=== PATIENT | male | born 1930 | race Caucasian/White ===

== ENCOUNTER 2021-02-08 14:03 | Inpatient (IN) ==
[2021-02-11] MEDS ORDERED: Sennosides/Docusate Sodium TABLET PO PRN (15:45)
[2021-02-11] MEDS ORDERED: MOM Conc 10 ML UD.LIQ PO PRN (16:21)
[2021-02-11] MEDS ORDERED: Ondansetron ODT 4 MG TAB.RAPDIS SL PRN (16:21)
[2021-02-11] MEDS ORDERED: polyethylene glycoL 3350 17 GM POWD.PACK PO PRN (16:21)
[2021-02-11] MEDS ORDERED: Warfarin perPT PO PRN (18:00)
[2021-02-11] MEDS ORDERED: *HR* Warfarin 3 MG TABLET PO ONE (18:00)
[2021-02-11] MEDS: *HR* Metformin 500 MG TABLET PO SCH (18:56)
[2021-02-11] MEDS: Finasteride 5 MG TABLET PO PRN (18:57)
[2021-02-11] MEDS: Metoprolol 100 MG TABLET PO SCH (20:24)
[2021-02-11] MEDS: Acetaminophen 325 MG TABLET PO PRN (20:35)
[2021-02-11] MEDS: GLUCOS SUL PO SCH (20:44)
[2021-02-11] MEDS: [UNRECOGNIZED DRUG - OTHER] PO SCH (20:44)
[2021-02-12 06:40] LABS: INR 1.3; Prothrombin Time 15.1 Seconds (9.4-12.1)
[2021-02-12 06:42] LABS: Hematocrit 23.8 % (37.5-50.1); Hemoglobin 7.2 g/dL (12.9-16.9); Mean Corpuscular HGB Conc 30.3 g/dL (31.6-35.5); Mean Corpuscular Hemoglobin 30.3 pg (28.0-33.3); Mean Platelet Volume 10.8 fL (9.4-12.4); Platelet Count 199 K/mcL (140-400); Red Blood Count 2.38 M/mcL (4.19-5.50); Red Cell Distribution Width 21.8 % (11.5-14.5); Segmented Neutrophils % 42.8 %
[2021-02-12 06:43] LABS: Basophils % 0.5 %; Eosinophils # 0.6 K/mcL (0.0-0.6); Eosinophils % 10.3 %; Immature Granulocytes % 1.7 % (0-4); Lymphocytes # 1.8 K/mcL (0.6-4.6); Lymphocytes % 29.9 %; Monocytes # 0.9 K/mcL (0.0-1.3); Monocytes % 14.8 %; Neutrophils # 2.6 K/mcL (1.6-8.9); Nucleated Red Blood Cells 0.8 /100 WBC (0)
[2021-02-12 08:16] LABS: Alanine Aminotransferase 11 Units/L (7-52); Albumin 3.3 g/dL (3.5-5.7); Albumin/Globulin Ratio 1.1 (1.1-2.2); Alkaline Phosphatase 52 Units/L (34-104); Aspartate Amino Transferase 13 Units/L (13-39); BUN/Creatinine Ratio 22 (6-26); Bilirubin,Total 0.5 mg/dL (0.3-1.0); Blood Urea Nitrogen 28 mg/dL (8-23); Calcium 8.5 mg/dL (8.6-10.3); Carbon Dioxide 24 mEq/L (23-29); Chloride 105 mEq/L (98-107); Glucose 110 mg/dL (70-105); Osmolality,Calculated 294 (280-300); Potassium 3.9 mEq/L (3.5-5.1); Sodium 139 mEq/L (136-145); Total Protein 6.3 g/dL (6.4-8.9); eGFR For African Americans > 60 (> 60); eGFR For Non-African Americans 52 (> 60)
[2021-02-12] MEDS: Furosemide 40 MG TABLET PO SCH (08:16)
[2021-02-12] MEDS: *HR* Glimepiride 2 MG TABLET PO SCH (08:16)
[2021-02-12] MEDS: GLUCOS SUL PO SCH ×2 (08:16→20:20)
[2021-02-12] MEDS: (Fish Oil/Dha/Epa [Fish Oil 1,200 Mg Fish Oil] 1 EACH PO SCH (08:16)
[2021-02-12] MEDS: [UNRECOGNIZED DRUG - OTHER] PO SCH ×2 (08:16→20:20)
[2021-02-12] MEDS: Metoprolol 100 MG TABLET PO SCH ×2 (08:16→20:18)
[2021-02-12] MEDS: *HR* Metformin 500 MG TABLET PO SCH ×2 (08:16→17:17)
[2021-02-12] MEDS ORDERED: *HR* Warfarin 5 MG TABLET PO ONE (18:00)
[2021-02-12] MEDS: Acetaminophen 325 MG TABLET PO PRN (20:18)
[2021-02-13 05:55] LABS: Hematocrit 26.7 % (37.5-50.1); Hemoglobin 8.1 g/dL (12.9-16.9)
[2021-02-13 06:05] LABS: INR 1.3; Prothrombin Time 15.4 Seconds (9.4-12.1)
[2021-02-13] MEDS: GLUCOS SUL PO SCH (08:14)
[2021-02-13] MEDS: Furosemide 40 MG TABLET PO SCH (08:14)
[2021-02-13] MEDS: *HR* Metformin 500 MG TABLET PO SCH ×2 (08:14→16:14)
[2021-02-13] MEDS: *HR* Glimepiride 2 MG TABLET PO SCH (08:14)
[2021-02-13] MEDS: Metoprolol 100 MG TABLET PO SCH ×2 (08:14→22:11)
[2021-02-13] MEDS: [UNRECOGNIZED DRUG - OTHER] PO SCH (08:14)
[2021-02-13] MEDS: (Fish Oil/Dha/Epa [Fish Oil 1,200 Mg Fish Oil] 1 EACH PO SCH (08:14)
[2021-02-13 12:59] LABS: % Iron Saturation 30 % (20-55); Iron 74 mcg/dL (65-175); Transferrin 175 mg/dL (203-362)
[2021-02-13] MEDS ORDERED: *HR* Warfarin 5 MG TABLET PO ONE (18:00)
[2021-02-13] MEDS: Acetaminophen 325 MG TABLET PO PRN (22:11)
[2021-02-13] MEDS: Finasteride 5 MG TABLET PO PRN (22:13)
[2021-02-14 04:54] LABS: INR 1.7; Prothrombin Time 19.3 Seconds (9.4-12.1)
[2021-02-14] MEDS: Furosemide 40 MG TABLET PO SCH (08:42)
[2021-02-14] MEDS: Metoprolol 100 MG TABLET PO SCH ×2 (08:42→20:29)
[2021-02-14] MEDS: *HR* Glimepiride 2 MG TABLET PO SCH (08:42)
[2021-02-14] MEDS: *HR* Metformin 500 MG TABLET PO SCH (08:43)
[2021-02-14] MEDS ORDERED: *HR* Warfarin 4 MG TABLET PO ONE (18:00)
[2021-02-14] MEDS: Finasteride 5 MG TABLET PO SCH (20:29)
[2021-02-14] MEDS: Acetaminophen 325 MG TABLET PO PRN (20:29)
[2021-02-15 04:51] LABS: Hematocrit 24.3 % (37.5-50.1); Hemoglobin 7.6 g/dL (12.9-16.9); Mean Corpuscular HGB Conc 31.3 g/dL (31.6-35.5); Mean Corpuscular Volume 99.2 fL (83.0-100.0); Mean Platelet Volume 10.2 fL (9.4-12.4); Platelet Count 196 K/mcL (140-400); Red Blood Count 2.45 M/mcL (4.19-5.50)
[2021-02-15 04:56] LABS: INR 1.9; Prothrombin Time 21.5 Seconds (9.4-12.1)
[2021-02-15 05:03] LABS: BUN/Creatinine Ratio 22 (6-26); Blood Urea Nitrogen 27 mg/dL (8-23); Calcium 8.4 mg/dL (8.6-10.3); Carbon Dioxide 26 mEq/L (23-29); Chloride 108 mEq/L (98-107); Glucose 100 mg/dL (70-105); Magnesium 1.9 mg/dL (1.6-2.6); Osmolality,Calculated 299 (280-300); Potassium 3.8 mEq/L (3.5-5.1); Sodium 142 mEq/L (136-145); eGFR For African Americans > 60 (> 60); eGFR For Non-African Americans 55 (> 60)
[2021-02-15] MEDS: Acetaminophen 325 MG TABLET PO PRN ×2 (06:22→20:18)
[2021-02-15] MEDS: *HR* Glimepiride 2 MG TABLET PO SCH (08:33)
[2021-02-15] MEDS: Furosemide 40 MG TABLET PO SCH (08:33)
[2021-02-15] MEDS: Metoprolol 100 MG TABLET PO SCH ×2 (08:33→20:17)
[2021-02-15] MEDS ORDERED: *HR* Warfarin 4 MG TABLET PO ONE (18:00)
[2021-02-15] MEDS: Finasteride 5 MG TABLET PO SCH (20:17)
[2021-02-16 04:51] LABS: INR 2.2; Prothrombin Time 25.3 Seconds (9.4-12.1)
[2021-02-16] MEDS: Metoprolol 100 MG TABLET PO SCH ×2 (08:00→19:39)
[2021-02-16] MEDS: Furosemide 40 MG TABLET PO SCH (08:01)
[2021-02-16] MEDS: *HR* Glimepiride 2 MG TABLET PO SCH (08:01)
[2021-02-16] MEDS ORDERED: *HR* Warfarin 3 MG TABLET PO ONE (18:00)
[2021-02-16] MEDS: Finasteride 5 MG TABLET PO SCH (19:39)
[2021-02-16] MEDS: Acetaminophen 325 MG TABLET PO PRN (19:40)
[2021-02-17 04:59] LABS: Hematocrit 23.5 % (37.5-50.1); Hemoglobin 7.1 g/dL (12.9-16.9); Mean Corpuscular HGB Conc 30.2 g/dL (31.6-35.5); Mean Corpuscular Hemoglobin 30.1 pg (28.0-33.3); Mean Corpuscular Volume 99.6 fL (83.0-100.0); Mean Platelet Volume 10.3 fL (9.4-12.4); Platelet Count 191 K/mcL (140-400); Red Blood Count 2.36 M/mcL (4.19-5.50); Red Cell Distribution Width 22.3 % (11.5-14.5); White Blood Count 6.3 K/mcL (4.3-11.1)
[2021-02-17 05:02] LABS: INR 2.5; Prothrombin Time 28.6 Seconds (9.4-12.1)
[2021-02-17 05:11] LABS: BUN/Creatinine Ratio 19 (6-26); Blood Urea Nitrogen 26 mg/dL (8-23); Calcium 8.4 mg/dL (8.6-10.3); Carbon Dioxide 27 mEq/L (23-29); Chloride 108 mEq/L (98-107); Glucose 97 mg/dL (70-105); Osmolality,Calculated 299 (280-300); Potassium 3.6 mEq/L (3.5-5.1); Sodium 142 mEq/L (136-145); eGFR For African Americans > 60 (> 60); eGFR For Non-African Americans 50 (> 60)
[2021-02-17] MEDS: Furosemide 40 MG TABLET PO SCH (07:47)
[2021-02-17] MEDS: Metoprolol 100 MG TABLET PO SCH ×2 (07:47→19:49)
[2021-02-17] MEDS: *HR* Glimepiride 2 MG TABLET PO SCH (07:47)
[2021-02-17] MEDS ORDERED: *HR* Warfarin 4 MG TABLET PO ONE (18:00)
[2021-02-17] MEDS: Finasteride 5 MG TABLET PO SCH (19:49)
[2021-02-18 05:25] LABS: INR 2.7; Prothrombin Time 30.8 Seconds (9.4-12.1)
[2021-02-18 05:35] LABS: BUN/Creatinine Ratio 19 (6-26); Blood Urea Nitrogen 23 mg/dL (8-23); Calcium 8.1 mg/dL (8.6-10.3); Carbon Dioxide 27 mEq/L (23-29); Chloride 106 mEq/L (98-107); Glucose 91 mg/dL (70-105); Osmolality,Calculated 289 (280-300); Sodium 138 mEq/L (136-145); eGFR For African Americans > 60 (> 60); eGFR For Non-African Americans 56 (> 60)
[2021-02-18 05:39] LABS: Basophils % 0.5 %; Eosinophils # 0.6 K/mcL (0.0-0.6); Eosinophils % 9.7 %; Hematocrit 22.5 % (37.5-50.1); Hemoglobin 6.8 g/dL (12.9-16.9); Immature Granulocytes % 1.3 % (0-4); Lymphocytes # 1.9 K/mcL (0.6-4.6); Lymphocytes % 30.7 %; Mean Corpuscular HGB Conc 30.2 g/dL (31.6-35.5); Mean Corpuscular Hemoglobin 30.1 pg (28.0-33.3); Mean Corpuscular Volume 99.6 fL (83.0-100.0); Mean Platelet Volume 10.6 fL (9.4-12.4); Monocytes # 1.1 K/mcL (0.0-1.3); Monocytes % 17.4 %; Neutrophils # 2.5 K/mcL (1.6-8.9); Nucleated Red Blood Cells 0.8 /100 WBC (0); Platelet Count 182 K/mcL (140-400); Red Blood Count 2.26 M/mcL (4.19-5.50); Red Cell Distribution Width 22.4 % (11.5-14.5); Segmented Neutrophils % 40.4 %; White Blood Count 6.1 K/mcL (4.3-11.1)
[2021-02-18] MEDS: *HR* Glimepiride 2 MG TABLET PO SCH (07:43)
[2021-02-18] MEDS: Furosemide 40 MG TABLET PO SCH (07:43)
[2021-02-18] MEDS: Metoprolol 100 MG TABLET PO SCH ×2 (07:44→19:57)
[2021-02-18] MEDS ORDERED: Furosemide 20 MG/2 ML VIAL IVP PRN (07:53)
[2021-02-18] MEDS ORDERED: 0.9 % Sodium Chloride 250 ML ONE ×2 (08:58→12:39)
[2021-02-18] MEDS ORDERED: *HR* Warfarin 3 MG TABLET PO ONE (18:00)
[2021-02-18] MEDS: Acetaminophen 325 MG TABLET PO PRN (19:58)
[2021-02-18] MEDS: Finasteride 5 MG TABLET PO SCH (19:58)
[2021-02-19 05:24] LABS: Basophils % 0.7 %; Eosinophils # 0.4 K/mcL (0.0-0.6); Eosinophils % 7.2 %; Hematocrit 26.9 % (37.5-50.1); Hemoglobin 8.5 g/dL (12.9-16.9); Immature Granulocytes % 1.1 % (0-4); Lymphocytes # 1.7 K/mcL (0.6-4.6); Lymphocytes % 28.4 %; Mean Corpuscular HGB Conc 31.6 g/dL (31.6-35.5); Mean Corpuscular Hemoglobin 30.5 pg (28.0-33.3); Mean Corpuscular Volume 96.4 fL (83.0-100.0); Mean Platelet Volume 12.1 fL (9.4-12.4); Monocytes # 1.1 K/mcL (0.0-1.3); Monocytes % 17.3 %; Neutrophils # 2.8 K/mcL (1.6-8.9); Nucleated Red Blood Cells 0.8 /100 WBC (0); Platelet Count 189 K/mcL (140-400); Red Blood Count 2.79 M/mcL (4.19-5.50); Red Cell Distribution Width 21.7 % (11.5-14.5); Segmented Neutrophils % 45.3 %; White Blood Count 6.1 K/mcL (4.3-11.1)
[2021-02-19 05:31] LABS: INR 2.8; Prothrombin Time 31.7 Seconds (9.4-12.1)
[2021-02-19 05:46] LABS: BUN/Creatinine Ratio 21 (6-26); Blood Urea Nitrogen 24 mg/dL (8-23); Calcium 8.4 mg/dL (8.6-10.3); Carbon Dioxide 28 mEq/L (23-29); Chloride 106 mEq/L (98-107); Glucose 83 mg/dL (70-105); Osmolality,Calculated 293 (280-300); Potassium 3.8 mEq/L (3.5-5.1); Sodium 140 mEq/L (136-145); eGFR For African Americans > 60 (> 60); eGFR For Non-African Americans 59 (> 60)
[2021-02-19] MEDS: Furosemide 40 MG TABLET PO SCH (08:09)
[2021-02-19] MEDS: Metoprolol 100 MG TABLET PO SCH ×2 (08:09→20:12)
[2021-02-19] MEDS: *HR* Glimepiride 2 MG TABLET PO SCH (08:10)
[2021-02-19] MEDS ORDERED: *HR* Warfarin 4 MG TABLET PO ONE (18:00)
[2021-02-19] MEDS: Acetaminophen 325 MG TABLET PO PRN (20:12)
[2021-02-19] MEDS: Finasteride 5 MG TABLET PO SCH (20:12)
[2021-02-20 06:01] LABS: INR 2.7; Prothrombin Time 30.3 Seconds (9.4-12.1)
[2021-02-20] MEDS: *HR* Glimepiride 2 MG TABLET PO SCH (09:19)
[2021-02-20] MEDS: Furosemide 40 MG TABLET PO SCH (09:19)
[2021-02-20] MEDS: Metoprolol 100 MG TABLET PO SCH ×2 (09:19→20:30)
[2021-02-20] MEDS ORDERED: *HR* Warfarin 3 MG TABLET PO ONE (18:00)
[2021-02-20] MEDS: Acetaminophen 325 MG TABLET PO PRN (20:30)
[2021-02-20] MEDS: Finasteride 5 MG TABLET PO SCH (20:31)
[2021-02-21 05:18] LABS: Basophils % 0.6 %; Eosinophils # 0.4 K/mcL (0.0-0.6); Eosinophils % 7.2 %; Hematocrit 25.6 % (37.5-50.1); Immature Granulocytes % 1.3 % (0-4); Lymphocytes # 1.7 K/mcL (0.6-4.6); Lymphocytes % 31.8 %; Mean Corpuscular HGB Conc 31.3 g/dL (31.6-35.5); Mean Corpuscular Hemoglobin 30.5 pg (28.0-33.3); Mean Corpuscular Volume 97.7 fL (83.0-100.0); Mean Platelet Volume 11.2 fL (9.4-12.4); Monocytes % 18.3 %; Neutrophils # 2.2 K/mcL (1.6-8.9); Nucleated Red Blood Cells 0.9 /100 WBC (0); Platelet Count 167 K/mcL (140-400); Red Blood Count 2.62 M/mcL (4.19-5.50); Red Cell Distribution Width 21.7 % (11.5-14.5); Segmented Neutrophils % 40.8 %; White Blood Count 5.4 K/mcL (4.3-11.1)
[2021-02-21 05:23] LABS: INR 2.6; Prothrombin Time 29.3 Seconds (9.4-12.1)
[2021-02-21 05:28] LABS: Anisocytosis 1+ (Not Present); Platelet Estimate Normal (Normal); Poikilocytosis 1+ (Not Present)
[2021-02-21 05:34] LABS: BUN/Creatinine Ratio 22 (6-26); Blood Urea Nitrogen 23 mg/dL (8-23); Carbon Dioxide 28 mEq/L (23-29); Chloride 105 mEq/L (98-107); Glucose 91 mg/dL (70-105); Osmolality,Calculated 291 (280-300); Potassium 3.6 mEq/L (3.5-5.1); Sodium 139 mEq/L (136-145); eGFR For African Americans > 60 (> 60); eGFR For Non-African Americans > 60 (> 60)
[2021-02-21] MEDS: Furosemide 40 MG TABLET PO SCH (08:15)
[2021-02-21] MEDS: *HR* Glimepiride 2 MG TABLET PO SCH (08:15)
[2021-02-21] MEDS: Metoprolol 100 MG TABLET PO SCH ×2 (08:15→20:08)
[2021-02-21] MEDS ORDERED: *HR* Warfarin 4 MG TABLET PO ONE (18:00)
[2021-02-21] MEDS: Finasteride 5 MG TABLET PO SCH (20:08)
[2021-02-21] MEDS: Acetaminophen 325 MG TABLET PO PRN (20:08)
[2021-02-22 05:21] LABS: INR 2.5; Prothrombin Time 28.2 Seconds (9.4-12.1)
[2021-02-22] MEDS: Metoprolol 100 MG TABLET PO SCH ×2 (07:30→21:37)
[2021-02-22] MEDS: *HR* Glimepiride 2 MG TABLET PO SCH (07:30)
[2021-02-22] MEDS: Furosemide 40 MG TABLET PO SCH (07:30)
[2021-02-22] MEDS ORDERED: *HR* Warfarin 3 MG TABLET PO ONE (18:00)
[2021-02-22] MEDS: Acetaminophen 325 MG TABLET PO PRN (21:37)
[2021-02-22] MEDS: Finasteride 5 MG TABLET PO SCH (21:37)
[2021-02-23 05:36] LABS: INR 2.6; Prothrombin Time 29.5 Seconds (9.4-12.1)
[2021-02-23] MEDS: *HR* Glimepiride 2 MG TABLET PO SCH (08:08)
[2021-02-23] MEDS: Furosemide 40 MG TABLET PO SCH (08:08)
[2021-02-23] MEDS: Metoprolol 100 MG TABLET PO SCH ×2 (08:08→20:58)
[2021-02-23] MEDS ORDERED: *HR* Warfarin 4 MG TABLET PO ONE (18:00)
[2021-02-23 19:31] LABS: % Iron Saturation 14 % (20-55); Iron 36 mcg/dL (65-175); Transferrin 186 mg/dL (203-362)
[2021-02-23 20:14] VITALS: TEMP 98.4
[2021-02-23] MEDS: Acetaminophen 325 MG TABLET PO PRN (20:58)
[2021-02-23] MEDS: Finasteride 5 MG TABLET PO SCH (20:58)
[2021-02-24 05:09] LABS: INR 2.3; Prothrombin Time 26.2 Seconds (9.4-12.1)
[2021-02-24] MEDS: Furosemide 40 MG TABLET PO SCH (08:44)
[2021-02-24] MEDS: Metoprolol 100 MG TABLET PO SCH (08:44)
[2021-02-24] MEDS: *HR* Glimepiride 2 MG TABLET PO SCH (08:45)
[2021-02-24 09:50] VITALS: BP 137/73; PULSE 62; RESP 16; O2SAT 96
[2021-02-24 13:42] LABS: Basophils % 0.3 %; Eosinophils # 0.4 K/mcL (0.0-0.6); Eosinophils % 6.3 %; Hematocrit 28.3 % (37.5-50.1); Hemoglobin 8.7 g/dL (12.9-16.9); Immature Granulocytes % 0.9 % (0-4); Lymphocytes # 1.9 K/mcL (0.6-4.6); Lymphocytes % 28.2 %; Mean Corpuscular HGB Conc 30.7 g/dL (31.6-35.5); Mean Corpuscular Hemoglobin 30.4 pg (28.0-33.3); Mean Platelet Volume 10.3 fL (9.4-12.4); Monocytes # 1.2 K/mcL (0.0-1.3); Monocytes % 16.9 %; Neutrophils # 3.2 K/mcL (1.6-8.9); Nucleated Red Blood Cells 0.6 /100 WBC (0); Platelet Count 178 K/mcL (140-400); Red Blood Count 2.86 M/mcL (4.19-5.50); Red Cell Distribution Width 21.8 % (11.5-14.5); Segmented Neutrophils % 47.4 %; White Blood Count 6.8 K/mcL (4.3-11.1)
[2021-02-24] MEDS ORDERED: *HR* Warfarin 3 MG TABLET PO ONE (18:00)
== END 2021-02-24 15:30 | disposition home health service (06) | DRG 945 ==
LOC: INPGRE 02-11 17:39
PROVIDERS: ADMIT Family Medicine; ATTEND Family Medicine

== ENCOUNTER 2021-05-25 10:50 | Inpatient (IN) ==
[2021-05-26] MEDS ORDERED: D5% in Water 1,000 ML IVC PRN (18:18)
[2021-05-26] MEDS ORDERED: Dextrose Gel 15 GM/37.5 ML TUBE PO PRN ×2 (18:18)
[2021-05-26] MEDS ORDERED: *HR* Dextrose 50 % in Water (Syg) 50 ML SYRINGE IVP PRN (18:18)
[2021-05-26] MEDS: Sennosides/Docusate Sodium TABLET PO PRN (21:46)
[2021-05-26] MEDS: Metoprolol 100 MG TABLET PO SCH (21:46)
[2021-05-26] MEDS: Acetaminophen 325 MG TABLET PO PRN (21:46)
[2021-05-26] MEDS: GLUCOSAMINE PO SCH (23:30)
[2021-05-27 06:05] LABS: Basophils % 0.6 %; Eosinophils # 0.2 K/mcL (0.0-0.6); Eosinophils % 3.7 %; Hematocrit 23.4 % (37.5-50.1); Hemoglobin 7.2 g/dL (12.9-16.9); Immature Granulocytes % 2.2 % (0-4); Lymphocytes # 1.6 K/mcL (0.6-4.6); Lymphocytes % 32.3 %; Mean Corpuscular HGB Conc 30.8 g/dL (31.6-35.5); Mean Corpuscular Hemoglobin 31.2 pg (28.0-33.3); Mean Corpuscular Volume 101.3 fL (83.0-100.0); Mean Platelet Volume 11.9 fL (9.4-12.4); Monocytes % 19.3 %; Neutrophils # 2.1 K/mcL (1.6-8.9); Nucleated Red Blood Cells 0.4 /100 WBC (0); Platelet Count 154 K/mcL (140-400); Red Blood Count 2.31 M/mcL (4.19-5.50); Red Cell Distribution Width 23.8 % (11.5-14.5); Segmented Neutrophils % 41.9 %; White Blood Count 5.1 K/mcL (4.3-11.1)
[2021-05-27 06:19] LABS: BUN/Creatinine Ratio 19 (6-26); Blood Urea Nitrogen 23 mg/dL (8-23); Carbon Dioxide 25 mEq/L (23-29); Chloride 108 mEq/L (98-107); Glucose 105 mg/dL (70-105); Osmolality,Calculated 290 (280-300); Potassium 3.4 mEq/L (3.5-5.1); Sodium 138 mEq/L (136-145); eGFR For African Americans > 60 (> 60); eGFR For Non-African Americans 55 (> 60)
[2021-05-27] MEDS: Amoxicillin/Clavulanate 500 MG TABLET PO SCH ×2 (09:42→16:11)
[2021-05-27] MEDS: *HR* Glimepiride 2 MG TABLET PO SCH (09:42)
[2021-05-27] MEDS: Furosemide 40 MG TABLET PO SCH (09:43)
[2021-05-27] MEDS: *HR* Metformin 500 MG TABLET PO SCH ×2 (09:43→16:11)
[2021-05-27] MEDS: Metoprolol 100 MG TABLET PO SCH ×2 (09:43→20:01)
[2021-05-27] MEDS: GLUCOSAMINE PO SCH ×2 (09:51→20:02)
[2021-05-27 12:35] LABS: Estimated Average Glucose 120 mg/dl; Hemoglobin A1C 5.8 %
[2021-05-27] MEDS: Acetaminophen 325 MG TABLET PO PRN (20:01)
[2021-05-27] MEDS: Sennosides/Docusate Sodium TABLET PO PRN (20:01)
[2021-05-27] MEDS: *HR* Enoxaparin 40 MG/0.4 ML SYRINGE SQ SCH (20:02)
[2021-05-28] MEDS: Metoprolol 100 MG TABLET PO SCH ×2 (10:08→19:38)
[2021-05-28] MEDS: *HR* Glimepiride 2 MG TABLET PO SCH (10:08)
[2021-05-28] MEDS: Amoxicillin/Clavulanate 500 MG TABLET PO SCH ×2 (10:08→19:38)
[2021-05-28] MEDS: Furosemide 40 MG TABLET PO SCH (10:09)
[2021-05-28] MEDS: *HR* Metformin 500 MG TABLET PO SCH ×2 (10:09→19:39)
[2021-05-28] MEDS: GLUCOSAMINE PO SCH ×2 (10:09→19:39)
[2021-05-28 11:42] LABS: BUN/Creatinine Ratio 15 (6-26); Blood Urea Nitrogen 20 mg/dL (8-23); Calcium 8.2 mg/dL (8.6-10.3); Carbon Dioxide 26 mEq/L (23-29); Chloride 109 mEq/L (98-107); Glucose 103 mg/dL (70-105); Osmolality,Calculated 295 (280-300); Potassium 3.6 mEq/L (3.5-5.1); Sodium 141 mEq/L (136-145); eGFR For African Americans > 60 (> 60); eGFR For Non-African Americans 50 (> 60)
[2021-05-28] MEDS: *HR* Enoxaparin 40 MG/0.4 ML SYRINGE SQ SCH (16:52)
[2021-05-28] MEDS: Acetaminophen 325 MG TABLET PO PRN (19:38)
[2021-05-28 19:39] LABS: Folate 13.7 ng/mL (3.0-16.0)
[2021-05-29 00:48] LABS: Iron 49 mcg/dL (65-175)
[2021-05-29 06:26] LABS: Immature Reticulocyte % 17.7 % (11.0-38.0); Retculocyte # 0.01 M/mcL (0.05-0.10); Reticulocyte % 0.5 % (1.6-2.8)
[2021-05-29 06:30] LABS: Basophils % 0.6 %; Eosinophils # 0.2 K/mcL (0.0-0.6); Hematocrit 24.5 % (37.5-50.1); Hemoglobin 7.7 g/dL (12.9-16.9); Lymphocytes # 1.6 K/mcL (0.6-4.6); Lymphocytes % 30.5 %; Mean Corpuscular HGB Conc 31.4 g/dL (31.6-35.5); Mean Corpuscular Hemoglobin 31.3 pg (28.0-33.3); Mean Corpuscular Volume 99.6 fL (83.0-100.0); Mean Platelet Volume 11.9 fL (9.4-12.4); Monocytes # 0.8 K/mcL (0.0-1.3); Neutrophils # 2.5 K/mcL (1.6-8.9); Nucleated Red Blood Cells 0.6 /100 WBC (0); Platelet Count 193 K/mcL (140-400); Red Blood Count 2.46 M/mcL (4.19-5.50); Red Cell Distribution Width 23.3 % (11.5-14.5); Segmented Neutrophils % 46.9 %; White Blood Count 5.3 K/mcL (4.3-11.1)
[2021-05-29 06:59] LABS: Alanine Aminotransferase 13 Units/L (7-52); Albumin 3.3 g/dL (3.5-5.7); Albumin/Globulin Ratio 1.2 (1.1-2.2); Alkaline Phosphatase 123 Units/L (34-104); Aspartate Amino Transferase 9 Units/L (13-39); BUN/Creatinine Ratio 16 (6-26); Bilirubin,Total 0.6 mg/dL (0.3-1.0); Blood Urea Nitrogen 19 mg/dL (8-23); Calcium 8.1 mg/dL (8.6-10.3); Carbon Dioxide 25 mEq/L (23-29); Chloride 107 mEq/L (98-107); Globulin 2.7 g/dL (2.4-3.5); Glucose 89 mg/dL (70-105); Magnesium 1.9 mg/dL (1.6-2.6); Osmolality,Calculated 288 (280-300); Potassium 3.3 mEq/L (3.5-5.1); Sodium 138 mEq/L (136-145); eGFR For African Americans > 60 (> 60); eGFR For Non-African Americans 58 (> 60)
[2021-05-29 07:13] LABS: Hypochromasia Present (Not Present); Microcytosis Present (Not Present); Platelet Estimate Normal (Normal)
[2021-05-29] MEDS: *HR* Metformin 500 MG TABLET PO SCH ×2 (10:21→16:27)
[2021-05-29] MEDS: *HR* Glimepiride 2 MG TABLET PO SCH (10:21)
[2021-05-29] MEDS: Furosemide 40 MG TABLET PO SCH (10:21)
[2021-05-29] MEDS: Metoprolol 100 MG TABLET PO SCH ×2 (10:21→20:09)
[2021-05-29] MEDS: GLUCOSAMINE PO SCH ×2 (10:21→20:26)
[2021-05-29] MEDS: Amoxicillin/Clavulanate 500 MG TABLET PO SCH ×2 (10:21→16:27)
[2021-05-29] MEDS: *HR* Enoxaparin 40 MG/0.4 ML SYRINGE SQ SCH (10:22)
[2021-05-29] MEDS: Sucralfate 1 GM TABLET PO SCH ×2 (16:27→20:09)
[2021-05-29] MEDS: Acetaminophen 325 MG TABLET PO PRN (20:31)
[2021-05-30 06:35] LABS: Basophils % 0.5 %; Eosinophils # 0.1 K/mcL (0.0-0.6); Eosinophils % 2.4 %; Hematocrit 25.2 % (37.5-50.1); Immature Granulocytes % 4.5 % (0-4); Lymphocytes # 1.9 K/mcL (0.6-4.6); Lymphocytes % 32.9 %; Mean Corpuscular HGB Conc 31.7 g/dL (31.6-35.5); Mean Corpuscular Hemoglobin 31.6 pg (28.0-33.3); Mean Corpuscular Volume 99.6 fL (83.0-100.0); Monocytes # 0.9 K/mcL (0.0-1.3); Monocytes % 15.4 %; Neutrophils # 2.6 K/mcL (1.6-8.9); Nucleated Red Blood Cells 0.5 /100 WBC (0); Platelet Count 206 K/mcL (140-400); Red Blood Count 2.53 M/mcL (4.19-5.50); Segmented Neutrophils % 44.3 %; White Blood Count 5.8 K/mcL (4.3-11.1)
[2021-05-30 06:40] LABS: INR 1.4; Prothrombin Time 15.6 Seconds (9.4-12.1)
[2021-05-30 06:43] LABS: Activated Partial Thrombo Time 32.5 Seconds (26.0-36.0)
[2021-05-30 06:46] LABS: VBG HCO3 25 mEq/L (21-27); VBG PCO2 35 mmHg (41-51); VBG PH 7.46 pH Units (7.32-7.42); VBG PO2 165 mmHg (25-50)
[2021-05-30 06:52] LABS: Alanine Aminotransferase 13 Units/L (7-52); Albumin 3.5 g/dL (3.5-5.7); Albumin/Globulin Ratio 1.5 (1.1-2.2); Alkaline Phosphatase 121 Units/L (34-104); Aspartate Amino Transferase 11 Units/L (13-39); BUN/Creatinine Ratio 17 (6-26); Bilirubin,Total 0.6 mg/dL (0.3-1.0); Blood Urea Nitrogen 20 mg/dL (8-23); Carbon Dioxide 26 mEq/L (23-29); Chloride 108 mEq/L (98-107); Globulin 2.4 g/dL (2.4-3.5); Glucose 99 mg/dL (70-105); Osmolality,Calculated 295 (280-300); Potassium 3.8 mEq/L (3.5-5.1); Sodium 141 mEq/L (136-145); Total Protein 5.9 g/dL (6.4-8.9); eGFR For African Americans > 60 (> 60); eGFR For Non-African Americans 59 (> 60)
[2021-05-30] MEDS: Sucralfate 1 GM TABLET PO SCH (10:22)
[2021-05-30] MEDS: GLUCOSAMINE PO SCH ×2 (10:22→19:27)
[2021-05-30] MEDS: *HR* Enoxaparin 40 MG/0.4 ML SYRINGE SQ SCH (10:22)
[2021-05-30] MEDS: *HR* Metformin 500 MG TABLET PO SCH (10:23)
[2021-05-30] MEDS: Amoxicillin/Clavulanate 500 MG TABLET PO SCH (10:23)
[2021-05-30] MEDS: *HR* Glimepiride 2 MG TABLET PO SCH (10:23)
[2021-05-30] MEDS: Furosemide 40 MG TABLET PO SCH (10:23)
[2021-05-30] MEDS: Metoprolol 100 MG TABLET PO SCH (10:23)
[2021-05-30] MEDS: Morphine Sulfate Oral CONC 10 MG/0.5 ML ORAL.SYG SL PRN (11:16)
[2021-05-31] MEDS: GLUCOSAMINE PO SCH ×2 (07:44→20:01)
[2021-05-31 09:40] LABS: % Iron Saturation 27 % (20-55); Transferrin 132 mg/dL (200-400)
[2021-05-31] MEDS: Morphine Sulfate Oral CONC 10 MG/0.5 ML ORAL.SYG SL PRN (14:39)
[2021-06-01] MEDS: GLUCOSAMINE PO SCH ×2 (07:31→19:54)
[2021-06-01 07:51] VITALS: O2SAT 95
[2021-06-01] MEDS: Morphine Sulfate Oral CONC 10 MG/0.5 ML ORAL.SYG SL PRN ×2 (09:31→20:22)
[2021-06-01] MEDS: Acetaminophen 650 MG RECTAL SUPP RC PRN ×2 (09:32→20:12)
[2021-06-01] MEDS: 0.9 % Sodium Chloride 1,000 ML IVC SCH ×2 (10:03→19:44)
[2021-06-02] MEDS: 0.9 % Sodium Chloride 1,000 ML IVC SCH (05:46)
[2021-06-02] MEDS: Morphine Sulfate Oral CONC 10 MG/0.5 ML ORAL.SYG SL PRN ×2 (07:36→12:58)
[2021-06-02] MEDS: GLUCOSAMINE PO SCH (07:36)
[2021-06-02 08:30] VITALS: BP 136/70; PULSE 132; RESP 20; TEMP 99.8
[2021-06-02] MEDS ORDERED: Atropine 1% Opth Drops 100 DROP/5 ML BOTTLE SL PRN (13:05)
[2021-06-02] MEDS ORDERED: *HR* LORazepam Oral Conc 2 MG/ML SL PRN (13:06)
[2021-06-02] MEDS ORDERED: Scopolamine Patch 1.5 MG PATCH.TD72 TD SCH (13:15)
== END 2021-06-02 17:44 | disposition hospice, inpatient (51) | DRG 811 ==
LOC: INPGRE 05-26 17:39
PROVIDERS: ADMIT Family Medicine; ATTEND Family Medicine

== ENCOUNTER 2021-06-02 17:35 | Inpatient (IN) ==
[2021-06-02] MEDS ORDERED: Albuterol 2.5 MG/3 ML NEBULIZER IH PRN (18:26)
[2021-06-02] MEDS ORDERED: Morphine Sulfate Oral CONC 10 MG/0.5 ML ORAL.SYG PO PRN (18:26)
[2021-06-02] MEDS ORDERED: Ondansetron 4 MG/2 ML VIAL IVP PRN (18:26)
[2021-06-02] MEDS ORDERED: *HR* LORazepam Oral Conc 2 MG/ML PO PRN (18:26)
[2021-06-02] MEDS ORDERED: Morphine Sulfate 2 MG/ML SYRINGE IVP PRN (18:26)
[2021-06-02] MEDS ORDERED: *HR* LORazepam 2 MG/ML VIAL IVP PRN (18:26)
[2021-06-02] MEDS ORDERED: Bisacodyl 10 MG RECTAL SUPPOSITORY RC PRN (18:26)
[2021-06-02] MEDS: Scopolamine Patch 1.5 MG PATCH.TD72 TD SCH (19:06)
[2021-06-03] MEDS: Atropine 1% Opth Drops 100 DROP/5 ML BOTTLE SL PRN (11:01)
[2021-06-03] MEDS ORDERED: Morphine Sulfate Oral CONC 10 MG/0.5 ML ORAL.SYG SL ONE (12:17)
[2021-06-03] MEDS: *HR* LORazepam Oral Conc 2 MG/ML PO SCH ×8 (13:38→22:07)
[2021-06-03] MEDS ORDERED: Morphine Sulfate Oral CONC 10 MG/0.5 ML ORAL.SYG PO SCH ×2 (14:00→15:00)
[2021-06-03] MEDS: Morphine Sulfate Oral CONC 10 MG/0.5 ML ORAL.SYG PO SCH ×5 (15:04→23:10)
[2021-06-03] MEDS: Morphine Sulfate 2 MG/ML SYRINGE IVP PRN ×2 (16:33→18:32)
[2021-06-03] MEDS ORDERED: 0.9 % Sodium Chloride 500 ML IVC PRN (19:27)
[2021-06-04] MEDS ORDERED: Piperacillin/Tazobactam 3.375 GM in 0.9 % Sodium Chloride Mini Bag 100 ML IVPB SCH
[2021-06-04] MEDS: *HR* LORazepam Oral Conc 2 MG/ML PO SCH ×12 (00:09→22:10)
[2021-06-04] MEDS: Morphine Sulfate Oral CONC 10 MG/0.5 ML ORAL.SYG PO SCH ×13 (01:02→23:11)
[2021-06-04] MEDS: Acetaminophen 650 MG RECTAL SUPP RC PRN ×3 (03:31→22:11)
[2021-06-05] MEDS: *HR* LORazepam Oral Conc 2 MG/ML PO SCH ×10 (00:32→17:56)
[2021-06-05] MEDS: Morphine Sulfate Oral CONC 10 MG/0.5 ML ORAL.SYG PO SCH ×10 (01:28→18:49)
[2021-06-05 07:58] VITALS: O2SAT 85
[2021-06-05] MEDS: Atropine 1% Opth Drops 100 DROP/5 ML BOTTLE SL PRN ×3 (15:29→18:49)
[2021-06-05] MEDS: Scopolamine Patch 1.5 MG PATCH.TD72 TD SCH (17:55)
[2021-06-05 20:16] VITALS: BP 72/39; PULSE 94; RESP 21; TEMP 101.3
== END 2021-06-05 22:02 | disposition expired | DRG 64 ==
LOC: INPGRE 17:49
PROVIDERS: ADMIT Family Medicine; ATTEND Family Medicine